=== PATIENT | male | born 1940 | race Caucasian/White ===

== ENCOUNTER 2020-12-21 05:48 | Inpatient (IN) | payer OTHER ==
[2020-12-20 09:13] VITALS: BMI 27.8
[2020-12-21] MEDS ORDERED: TRANEXAMIC ACID 1000 MG/10 ML VIAL IVPUSH ONE (06:24)
[2020-12-21] MEDS ORDERED: CEFAZOLIN 2 GM in DEXTROSE 5%-WATER - 50 ML IVPB ONE (06:24)
[2020-12-21] MEDS: CELECOXIB 200 MG CAPSULE PO ONE ×2 (07:15→12:31)
[2020-12-21] MEDS ORDERED: CELECOXIB 200 MG CAPSULE ONE (07:20)
[2020-12-21] MEDS ORDERED: VANCOMYCIN 1,000 MG VIAL (RESTRICTED TO ID ONLY) ONE ×2 (07:24→07:51)
[2020-12-21] MEDS ORDERED: ceFAZolin SODIUM 1 GM VIAL ONE ×2 (07:24→08:39)
[2020-12-21] MEDS ORDERED: BUPIVACAINE HCL/PF 0.5% (5MG/ML) 10 ML VIAL ONE ×2 (07:44→07:59)
[2020-12-21] MEDS ORDERED: DEXAMETHASONE SOD PHOSPHATE 10 MG/1 ML VIAL ONE (07:44)
[2020-12-21] MEDS ORDERED: MIDAZOLAM HCL 2 MG/2 ML SINGLE DOSE VIAL ONE ×2 (07:44→09:21)
[2020-12-21] MEDS ORDERED: LIDOCAINE HCL/PF 2% SDV 5ML VIAL ONE (07:50)
[2020-12-21] MEDS ORDERED: MAG HYDROX/AL HYDROX/SIMETH 30 ML UNIT-DOSE CUP PO PRN (07:56)
[2020-12-21] MEDS ORDERED: MAGNESIUM HYDROX 2400MG/30ML ORAL SUSPENSION 30 ML CUP PO PRN (07:56)
[2020-12-21] MEDS ORDERED: ONDANSETRON 4 MG/2 ML VIAL IVPUSH PRN (07:56)
[2020-12-21] MEDS ORDERED: LACTATED RINGERS SOLUTION 1,000 ML IV SCH (08:00)
[2020-12-21] MEDS ORDERED: TRANEXAMIC ACID 1000 MG/10 ML VIAL ONE (08:41)
[2020-12-21] MEDS ORDERED: DEXAMETHASONE SOD PHOSPHATE 4 MG/1 ML VIAL ONE (08:47)
[2020-12-21] MEDS ORDERED: ONDANSETRON 4 MG/2 ML VIAL ONE (08:47)
[2020-12-21] MEDS ORDERED: ALISKIREN HEMIFUMARATE 300 MG PO SCH (10:00)
[2020-12-21] MEDS ORDERED: ACETAMINOPHEN INJECTION 100 ML IVPB ONE (10:58)
[2020-12-21] MEDS: ACETAMINOPHEN 1000 MG/100 ML VIAL (NON FORMULARY) IVPB ONE ×2 (11:00→13:44)
[2020-12-21] MEDS: ACETAMINOPHEN 325 MG TABLET (FP) PO SCH ×3 (12:32→23:00)
[2020-12-21] MEDS: POTASSIUM CHLORIDE TABS 10 MEQ TABLET.ER (FP) PO SCH (12:42)
[2020-12-21] MEDS: SENNOSIDES/DOCUSATE COMBO (SENNA PLUS) TABLET (UD) PO SCH ×2 (12:42→21:27)
[2020-12-21] MEDS: amLODIPine BESYLATE 10 MG TABLET (FP) PO SCH (12:42)
[2020-12-21] MEDS: LOSARTAN POTASSIUM 50 MG TABLET PO SCH (12:42)
[2020-12-21] MEDS: PANTOPRAZOLE 40 MG TABLET PO SCH (12:43)
[2020-12-21] MEDS: MULTIVITAMINS (DAILY MVI) TABLET (FP) PO SCH (12:43)
[2020-12-21] MEDS: oxyCODONE HCL 5 MG TABLET PO PRN ×3 (13:28→20:15)
[2020-12-21] MEDS: CEFAZOLIN 2 GM/D5W 2 GM/50 ML ML IVPB SCH ×2 (16:31→23:52)
[2020-12-21] MEDS: oxyCODONE HCL 10 MG SUSTAINED ACTING TABLET PO SCH (21:27)
[2020-12-22] MEDS: ACETAMINOPHEN 325 MG TABLET (FP) PO SCH ×4 (05:53→22:25)
[2020-12-22 07:26] LABS: HEMATOCRIT 33.6 % (35.4-49); HEMOGLOBIN 11.4 GM/dl (11.7-16.9); MCH 31.1 pg (25.7-33.7); MCHC 33.8 g/dl (32.0-35.9); MEAN CELL VOLUME 91.9 fl (80-96); MEAN PLT VOLUME 8.4 fl (7.5-11.1); PLATELET COUNT 227 10^3/uL (134-434); RBC 3.65 M/mm3 (4.00-5.60); RDW 13.1 % (11.9-15.9); WHITE BLOOD COUNT 15.9 K/mm3 (4.0-10.8)
[2020-12-22] MEDS ORDERED: ALISKIREN HEMIFUMARATE 300 MG PO SCH (10:00)
[2020-12-22] MEDS: POTASSIUM CHLORIDE TABS 10 MEQ TABLET.ER (FP) PO SCH (10:01)
[2020-12-22] MEDS: SENNOSIDES/DOCUSATE COMBO (SENNA PLUS) TABLET (UD) PO SCH ×2 (10:02→21:05)
[2020-12-22] MEDS: ASPIRIN 325 MG TABLET PO SCH (10:02)
[2020-12-22] MEDS: PANTOPRAZOLE 40 MG TABLET PO SCH (10:02)
[2020-12-22] MEDS: MULTIVITAMINS (DAILY MVI) TABLET (FP) PO SCH (10:02)
[2020-12-22] MEDS: oxyCODONE HCL 10 MG SUSTAINED ACTING TABLET PO SCH ×2 (10:03→21:04)
[2020-12-22] MEDS: amLODIPine BESYLATE 10 MG TABLET (FP) PO SCH (10:04)
[2020-12-22] MEDS: LOSARTAN POTASSIUM 50 MG TABLET PO SCH (10:04)
[2020-12-22] MEDS: oxyCODONE HCL 5 MG TABLET PO PRN ×2 (11:18→18:05)
[2020-12-23] MEDS ORDERED: LOCK ITEM NR ONE (02:45)
[2020-12-23] MEDS: ACETAMINOPHEN 325 MG TABLET (FP) PO SCH ×2 (04:47→11:07)
[2020-12-23 06:25] VITALS: BP 149/62; PULSE 76; TEMP 98.8
[2020-12-23] MEDS: oxyCODONE HCL 5 MG TABLET PO PRN (06:37)
[2020-12-23 07:49] LABS: HEMOGLOBIN 10.8 GM/dl (11.7-16.9); MCH 31.2 pg (25.7-33.7); MCHC 33.7 g/dl (32.0-35.9); MEAN CELL VOLUME 92.7 fl (80-96); MEAN PLT VOLUME 9.3 fl (7.5-11.1); PLATELET COUNT 187 10^3/uL (134-434); RBC 3.45 M/mm3 (4.00-5.60); RDW 13.4 % (11.9-15.9)
[2020-12-23] MEDS: ASPIRIN 325 MG TABLET PO SCH (08:33)
[2020-12-23] MEDS: oxyCODONE HCL 10 MG SUSTAINED ACTING TABLET PO SCH (09:29)
[2020-12-23] MEDS: POTASSIUM CHLORIDE TABS 10 MEQ TABLET.ER (FP) PO SCH (09:29)
[2020-12-23] MEDS: amLODIPine BESYLATE 10 MG TABLET (FP) PO SCH (09:29)
[2020-12-23] MEDS: LOSARTAN POTASSIUM 50 MG TABLET PO SCH (09:29)
[2020-12-23] MEDS: SENNOSIDES/DOCUSATE COMBO (SENNA PLUS) TABLET (UD) PO SCH (09:30)
[2020-12-23] MEDS: MULTIVITAMINS (DAILY MVI) TABLET (FP) PO SCH (09:30)
[2020-12-23] MEDS: PANTOPRAZOLE 40 MG TABLET PO SCH (09:30)
== END 2020-12-23 12:53 | disposition home health service (06) | DRG 470 ==
LOC: FM/S 05:48
PROVIDERS: ADMIT Orthopaedic Surgery; ATTEND Orthopaedic Surgery
PROC: 8E0W0CZ Robotic Assisted Procedure of Trunk Region, Open Approach (ICD-10-PCS; 2020-12-21)
PROC: 0SRB0JZ Replacement of Left Hip Joint with Synthetic Substitute, Open Approach (ICD-10-PCS; principal; 2020-12-21 08:49)
DX: M16.12 Unilateral primary osteoarthritis, left hip (principal); I10 Essential (primary) hypertension; E78.5 Hyperlipidemia, unspecified
CPT/HCPCS: 36415; 73502-TC-LT-FY; 85027; 94760; 97010-GP; 97116-GP; 97163-GP; J0131; J1100